=== PATIENT | male | born 1975 ===

== ENCOUNTER 2018-07-22 07:04 | Emergency (ER) | payer BC ==
--- NOTE | 2018-07-22 07:17 | UC ---
Lower Extremity/Ankle HPI - HPI Summary HPI Summary: This is a 43 year-old white male in previous good health. He comes to the urgent care center with a chief complaint of RIGHT foot injury. This began 30 days ago and is getting worse. He describes his pain as follows: brought on walking, located over right MTP joint, aching in quality, non-radiating, mild, aggravated by standing and relieved non weight bearing. His visit history has been reviewed and is non contributory to present complaint. - History of Current Complaint Stated Complaint: FOOT COMPLAINT Time Seen by Provider: 07/22/18 07:11 - Allergies/Home Medications Allergies/Adverse Reactions: Allergies Allergy/AdvReac Type Severity Reaction Status Date / Time No Known Allergies Allergy Verified 07/22/18 07:14 Home Medications: Home Medications Ibuprofen TAB* [Advil TAB*] 200 mg PO Q6H PRN 07/22/18 [History Confirmed ] diphenhydrAMINE HCl [Benadryl Allergy 25 MG CAP] 25 mg PO ONCE 07/22/18 [ History Confirmed 07/22/18] PMH/Surg Hx/FS Hx/Imm Hx - Additional Past Medical History Additional PMH: pmh: DENIES GOUT. No significant hospitalizations. Family history: patient denies FH of CVD, gout, renal disease. 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 Previously Healthy: Yes Review of Systems Constitutional: Negative Skin: Negative Eyes: Negative ENT: Negative Respiratory: Negative Cardiovascular: Negative Gastrointestinal: Negative Genitourinary: Negative Motor: Negative Neurovascular: Negative Musculoskeletal: Arthralgia - point tenderness at MTP joint of the first toe of the right foot. Neurological: Negative Psychological: Negative All Other Systems Reviewed And Are Negative: Yes - Comments Additional Review of Systems Comments: A 12 point review of systems was completed and was significantly positive for: X, Y, Z. The remainder of the review was negative except as stated above in the HPI. Physical Exam - Summary Physical Exam Summary: Appearance: The patient is well-appearing, is in no pain or distress, and is well-nourished. Eyes: Conjunctiva are clear. Pupils are equal and reactive to light and accommodation. Extra ocular muscle movement is intact. ENT: The hearing is grossly normal, the pharynx is normal, and the TMs are normal. There is no muffled or hoarse voice. No stridor. Neck: The neck is supple and there is no lymphadenopathy. Respiratory: The chest is nontender to palpation and without crepitus. The lungs are clear, there are normal breath sounds, and there is no respiratory distress. No wheezes, rales or rhonchi. Cardiovascular: Heart sounds reveal a regular rate and rhythm. There are no clicks, rubs or murmurs. There are no carotid bruits or thrills. Circulation is grossly intact. Abdomen: The abdomen is soft and nontender. There is no organomegaly. Bowel sounds are present and within normal limits. No point tenderness at McBurneys point. Musculoskeletal: Strength is intact. The patient moves all extremities. Point tenderness at MTP joint of the first toe of the right foot. Neurological: The patient is alert. Motor and sensory are examination grossly intact. Speech is normal. Psychological: The patient displays age appropriate behavior Skin: Negative for rashes. Triage Information Reviewed: Yes Lower Extremity Course/Dx - Course Course Of Treatment: 43-year-old with complaint of discomfort over the metatarsal phalangeal joints of the first toe of the right foot for one month. A 12 point review of systems was completed and significantly positive for right foot tenderness. Patient denies gout. X-ray was negative.I discussed his condition and patient will treat this as a contusion to this area, restrict activity, use warm moist heat morning and begin ibuprofen. My diagnosis is contusion of the right foot. I discussed with the patient the possibility of an inflammatory process. He will follow up as needed next week. - Differential Dx/Diagnosis Differential Diagnosis/HQI/PQRI: Contusion, Fracture (Closed), Gout, Infection Provider Diagnoses: contusion of the right foot Discharge - Sign-Out/Discharge Documenting (check all that apply): Patient Departure All imaging exams completed and their final reports reviewed: Yes - Discharge Plan Condition: Stable Disposition: HOME Patient Education Materials: Gout (ED), Foot Contusion (ED) Referrals: No Primary Care Phys,NOPCP [Primary Care Provider] - Additional Instructions: WE DISCUSSED: PLEASE SEEK CARE AT THE EMERGENCY DEPARTMENT IF SYMPTOMS WORSEN OR IF NEW SYMPTOMS DEVELOP. FOLLOW UP WITH YOUR PRIMARY CARE PHYSICIAN IF CONDITION CONTINUES BEYOND 3 DAYS WITHOUT IMPROVEMENT. YOUR DIAGNOSIS IS: RIGHT FOOT CONTUSION we will call with final x ray report if any problems seen. OTHER INSTRUCTIONS: Hypertension Discharge Instructions: Your blood pressure reading today was 129/88, indicating HYPERTENSION. Follow- up with your primary care provider within 4 weeks for blood pressure check and appropriate recommendations and treatment, as needed. For pain: Ibuprofen (Motrin and other brand names) 800 mg PLUS acetaminophen ( Tylenol and other brand names) 500mg - 1000mg every 8 hours. Maximum is 3 doses a day. If this dosage is required for more than 5 days, you should re-check with your doctor. The combination of these two [id number] medications can be more effective than each one taken alone. Please check with the pharmacist if you have questions about your allergies to these medications. This medication will cover both a contusion and an inflammatory process such as gout. Warm moist heat in the morning to loosen everything up, and then ice to the area during the day. If it hurts to stand on your foot decrease the amount of time your weightbearing. If you're sitting for a while elevate your foot on a chair. Recheck if you are not getting better in 10 days or sooner for any increased pain, redness, or disability. - Billing Disposition and Condition Condition: STABLE Disposition: Home
--- NOTE | 2018-07-22 08:36 | RAD ---
HISTORY: injury pain COMPARISONS: None VIEWS: 3 , Frontal, lateral, and oblique views of the right foot FINDINGS: BONE DENSITY: Normal. BONES: There is no displaced fracture. There are plantar calcaneal enthesophytes. JOINTS: There is no arthropathy. ALIGNMENT: There is no dislocation. SOFT TISSUES: Unremarkable. OTHER FINDINGS: None. IMPRESSION: NO ACUTE OSSEOUS INJURY. IF SYMPTOMS PERSIST, RECOMMEND REPEAT IMAGING.
== END 2018-07-22 08:40 | disposition home or self-care (01) ==
LOC: UCEAST 07:04
DX: S90.31XA Contusion of right foot, initial encounter (principal); X58.XXXA Exposure to other specified factors, initial encounter; Y93.01 Activity, walking, marching and hiking; Y92.9 Unspecified place or not applicable
CPT/HCPCS: 99202; G0463